=== PATIENT | female | born 1990 | race Caucasian/White ===

== ENCOUNTER 2016-11-16 14:20 | Observation (INO) | payer OTHER ==
[~2016-11-16] VITALS: Ht 160 cm; Wt 73.9 kg
[2016-11-16] MEDS ORDERED: PRENATAL LOW IR1 TA1 PO (14:33)
== END 2016-11-16 17:05 | disposition home or self-care (01) ==
LOC: MLD 14:20
PROVIDERS: ADMIT Obstetrics & Gynecology; ATTEND Obstetrics & Gynecology
DX: O41.00X0 Oligohydramnios, unspecified trimester, not applicable or unspecified (principal); Z3A.00 Weeks of gestation of pregnancy not specified
CPT/HCPCS: 76815; G0378; Q0092

== ENCOUNTER 2016-11-23 10:24 | Observation (INO) | payer OTHER ==
[~2016-11-23 10:24] MED LIST: PRENATAL LOW IR1 TA1 PO
[2016-11-24] MEDS ORDERED: FERROUS SULFAT325 MG PO (00:56)
== END 2016-11-23 14:14 | disposition home or self-care (01) ==
LOC: MLD 10:24
PROVIDERS: ADMIT Obstetrics & Gynecology; ATTEND Obstetrics & Gynecology
DX: O26.899 Other specified pregnancy related conditions, unspecified trimester (principal); R10.9 Unspecified abdominal pain; Z3A.00 Weeks of gestation of pregnancy not specified
CPT/HCPCS: 59025; 76815; G0378; Q0092

== ENCOUNTER 2016-11-24 00:01 | Inpatient (IN) | payer OTHER ==
[~2016-11-24] VITALS: Ht 160 cm; Wt 75.3 kg
[2016-11-24] MEDS ORDERED: LACTATED RINGERS 1,000 ML IV SCH (00:47)
[2016-11-24] MEDS ORDERED: PROMETHAZINE 25 MG/ML VIAL IVP PRN (00:50)
[2016-11-24] MEDS ORDERED: OXYTOCIN 10 UNITS/ML VIAL IM SCH (00:50)
[2016-11-24] MEDS ORDERED: NALBUPHINE HYDROCHLORIDE 10 MG/ML VIAL IVP PRN (00:50)
[2016-11-24] MEDS ORDERED: LACTATED RINGERS 500 ML IV ONE (00:50)
[2016-11-24] MEDS ORDERED: FERROUS SULFAT325 MG PO (00:56)
[2016-11-24 01:00] VITALS: BP 124/75
[2016-11-24] MEDS ORDERED: AMPICILLIN 2,000 MG VIAL ONE (01:09)
[2016-11-24] MEDS ORDERED: PROMETHAZINE 25 MG/ML VIAL ONE ×2 (01:51→11:48)
[2016-11-24] MEDS ORDERED: NALBUPHINE HYDROCHLORIDE 10 MG/ML VIAL ONE ×2 (01:51→11:48)
[2016-11-24] MEDS ORDERED: AMPICILLIN 2,000 MG in NACL 0.9% MINI-BAG PLUS 100 ML IV SCH (02:00)
[2016-11-24] MEDS ORDERED: TERBUTALINE 1 MG/ML VIAL SUBQ SCH (03:50)
[2016-11-24] MEDS ORDERED: TERBUTALINE 1 MG/ML VIAL SUBQ ONE (03:59)
[2016-11-24] MEDS ORDERED: LIDOCAINE 1% 50 ML ONE (11:19)
[2016-11-24] MEDS ORDERED: OXYTOCIN 10 UNITS/ML VIAL ONE (11:19)
--- NOTE | 2016-11-24 12:34 | NUR ---
PATIENT HAS BEEN SCREENED AND CATEGORIZED LOW NUTRITION RISK. PATIENT WILL BE SEEN WITHIN 7 DAYS OF ADMISSION. 12/01/16 TULIO PERALTA; JAYMIE, RD
[2016-11-24] MEDS ORDERED: WITCH HAZEL 40 PAD PACKAGE TP PRN (14:10)
[2016-11-24] MEDS ORDERED: OXYTOCIN 20 UNITS/LR PREMIX 1,000 ML IV SCH (14:10)
[2016-11-24] MEDS ORDERED: BISACODYL 5 MG TABEC PO PRN (14:10)
[2016-11-24] MEDS ORDERED: ACETAMINOPHEN 325 MG TAB PO PRN (14:10)
[2016-11-24] MEDS ORDERED: BENZOCAINE/MENTHOL 20%-0.5% 60 GM CAN TP PRN (14:10)
[2016-11-24] MEDS ORDERED: oxyCODONE/APAP 5/325 MG 1 TAB TAB PO PRN (14:10)
[2016-11-24] MEDS ORDERED: MEASLES, MUMPS, AND RUBELLA 1 VIAL SQVAC PRN (14:10)
[2016-11-25] MEDS: FERROUS SULFATE 325 MG TABEC PO SCH (06:26)
[2016-11-25] MEDS: MULTIVIT/MIN/CA/FE/FA 1 TAB PO SCH (08:35)
[2016-11-25] MEDS: DOCUSATE SODIUM 100 MG GELCAP PO PRN (08:36)
[2016-11-26] MEDS: FERROUS SULFATE 325 MG TABEC PO SCH (06:03)
[2016-11-26] MEDS: DOCUSATE SODIUM 100 MG GELCAP PO PRN (08:31)
[2016-11-26] MEDS: MULTIVIT/MIN/CA/FE/FA 1 TAB PO SCH (08:31)
== END 2016-11-26 15:10 | disposition home or self-care (01) | DRG 560 ==
LOC: MLD 00:01 → MFCC 17:09
PROVIDERS: ADMIT Obstetrics & Gynecology; ATTEND Obstetrics & Gynecology
PROC: 10E0XZZ Delivery of Products of Conception, External Approach (ICD-10-PCS; principal; 2016-11-24)
PROC: 10907ZC Drainage of Amniotic Fluid, Therapeutic from Products of Conception, Via Natural or Artificial Opening (ICD-10-PCS; 2016-11-24)
DX: O69.81X0 Labor and delivery complicated by cord around neck, without compression, not applicable or unspecified (principal); O76 Abnormality in fetal heart rate and rhythm complicating labor and delivery; O71.82 Other specified trauma to perineum and vulva; Z3A.39 39 weeks gestation of pregnancy; Z37.0 Single live birth